=== PATIENT | female | born 1990 | race Caucasian/White ===

== ENCOUNTER 2017-03-12 21:35 | Emergency (ER) | payer MEDICAID ==
[2017-03-12 21:49] VITALS: BP 112/67
--- NOTE | 2017-03-12 22:18 | EDM.PDOC ---
ED HPI GENERAL MEDICAL PROBLEM - General Chief Complaint: Skin Complaint Stated Complaint: BARTHONIAN CYSTS, VUVLA, GROIN Time Seen by Provider: 03/12/17 22:03 Source of Information: Reports: Patient, Family, RN Notes Reviewed History Limitations: Reports: No Limitations - History of Present Illness INITIAL COMMENTS - FREE TEXT/NARRATIVE: 27-year-old female presents emergency department day complaint of painful lump on her genitalia, she states she's had this for about 4 days does have a history of Bartholin's gland cysts she denies any fever no abnormal discharge has not tried anything for the pain Left Vaginal Pain Score (Numeric/FACES): 8 - Related Data Allergies Allergy/AdvReac Type Severity Reaction Status Date / Time lamotrigine [From Lamictal] Allergy Hives Verified 03/12/17 21:54 Home Meds: Home Meds Albuterol Sulfate [Ventolin Hfa] 1 puff INH ASDIRECTED 03/12/17 [History] FLUoxetine [PROzac] 40 mg PO DAILY 03/12/17 [History] Past Medical History Respiratory History: Reports: Asthma TRANSPORT MEDIC History: Reports: Neurological History: Reports: Concussion, Migraines Psychiatric History: Reports: Anxiety, Depression - Past Surgical History HEENT Surgical History: Reports: Tonsillectomy Social & Family History - Tobacco Use Smoking Status *Q: Never Smoker - Recreational Drug Use Recreational Drug Use: No ED ROS GENERAL - Review of Systems Review Of Systems: See Below Constitutional: Denies: Fever, Chills HEENT: Reports: No Symptoms Respiratory: Reports: No Symptoms Cardiovascular: Reports: No Symptoms GI/Abdominal: Reports: No Symptoms : Reports: Pain, Other (See history of present illness) ED EXAM, SKIN/RASH Exam: See Below Text/Narrative:: Examination of genitalia area down the presence of nursing staff I do appreciate a tender indurated area nonfluctuant left labia majora inferior aspect no confluence is noted no appreciable erythema is noted, no pallor is noted Exam Limited By: No Limitations General Appearance: Alert, WD/WN, No Apparent Distress Course - Vital Signs Last Recorded V/S: Last Vital Signs Temp 97.5 F 03/12/17 21:52 Pulse 92 03/12/17 21:52 Resp 16 03/12/17 21:52 BP 112/67 03/12/17 21:52 Pulse Ox 99 03/12/17 21:52 Departure - Departure Time of Disposition: 22:17 Disposition: Home, Self-Care 01 Condition: Good Clinical Impression: Bartholin's duct cyst - Discharge Information Referrals: Ellen Ann NP [Primary Care Provider] - Additional Instructions: Use hydrocodone as needed for pain control, take full course of antibiotics and continue with sitz bath, try the lidocaine as needed for symptomatic relief, Please followup with your primary care provider in 3-5 days if not better, please call return to the emergency department with worsening of symptoms. - Assessment/Plan Plan: Assessment Acuity = acute Site and laterality = concern for development of Bartholin abscess Etiology = probable bacterial cause Manifestations = pain Location of injury = Home Lab values = none Plan Because no central organization was noted for this area of swelling elected to wait for incision and drainage, placed on antibiotics Bactrim DS one tab by mouth twice a day 10 days, total #10 hydrocodone 5/325 every 4 hours when necessary provided for pain control in combination with lidocaine ointment 5% applied to affected areas twice a day she is to follow-up with her primary care in 3-5 days for reevaluation Patient was in agreement with the plan all questions were answered, they were instructed to return to the emergency department or call for worsening symptoms. This note was dictated using [employer] voice recognition software please call with any questions.
== END 2017-03-12 22:29 | disposition home or self-care (01) ==
LOC: JP.ED 21:35
DX: N75.0 Cyst of Bartholin's gland (principal); J45.909 Unspecified asthma, uncomplicated; F32.9 Major depressive disorder, single episode, unspecified; Z98.890 Other specified postprocedural states; Z79.899 Other long term (current) drug therapy; Z88.8 Allergy status to other drugs, medicaments and biological substances
CPT/HCPCS: 99283

== ENCOUNTER 2017-03-30 08:51 | Emergency (ER) | payer MEDICAID ==
[2017-03-30] MEDS ORDERED: HYDROmorphone 1 MG/ML Syringe IM ONE (09:29)
--- NOTE | 2017-03-30 09:36 | EDM.PDOC ---
ED HPI GENERAL MEDICAL PROBLEM - General Chief Complaint: Abdominal Pain Stated Complaint: STOMACH PAIN VERY PAINFUL Time Seen by Provider: 03/30/17 09:15 Source of Information: Reports: Patient History Limitations: Reports: No Limitations - History of Present Illness INITIAL COMMENTS - FREE TEXT/NARRATIVE: 27-year-old female who was following until she woke up this morning, rolled onto her side to sit up and realize she had intense lower abdominal pain, especially on the right side. It did not bother her while she was sleeping. She has no fever or chills, no urinary symptoms. She has not had this type of pain in the past. She is very regular on her cycles and is due to start her period today. No bowel changes. It's very painful to straighten her legs, flexing her hips helps with the pain. She took a test 2 days ago because she's had increased heartburn and it was negative. No radiation of pain to the back. 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) (Took some ibuprofen this morning, doesn't seem to be helping) Right Pelvic Pain Score (Numeric/FACES): 5 - Related Data Allergies Allergy/AdvReac Type Severity Reaction Status Date / Time lamotrigine [From Lamictal] Allergy Hives Verified 03/30/17 09:09 Home Meds: Home Meds Albuterol Sulfate [Ventolin Hfa] 1 puff INH ASDIRECTED 03/12/17 [History] FLUoxetine [PROzac] 40 mg PO DAILY 03/12/17 [History] Lisdexamfetamine [Vyvanse] 30 mg PO DAILY 03/30/17 [History] Past Medical History 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 History: Reports: 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: Neurological History: Reports: Concussion, Migraines Psychiatric History: Reports: Anxiety, Depression - Infectious Disease History Infectious Disease History: Reports: Chicken Pox - Past Surgical History HEENT Surgical History: Reports: Adenoidectomy, Tonsillectomy Social & Family History - Tobacco Use Smoking Status *Q: Never Smoker - Recreational Drug Use Recreational Drug Use: No ED ROS GENERAL - Review of Systems Review Of Systems: See Below Constitutional: Denies: Fever, Chills, Malaise HEENT: Reports: No Symptoms Respiratory: Reports: No Symptoms Cardiovascular: Reports: No Symptoms GI/Abdominal: Reports: Abdominal Pain, Nausea. Denies: Constipation, Diarrhea, Vomiting : Reports: No Symptoms Musculoskeletal: Reports: No Symptoms Skin: Reports: No Symptoms Neurological: Reports: No Symptoms Psychiatric: Reports: No Symptoms ED EXAM, GI/ABD - Physical Exam Exam: See Below Exam Limited By: No Limitations General Appearance: Alert, Anxious, Mild Distress (Patient appears very uncomfortable) Eyes: Bilateral: Normal Appearance Respiratory/Chest: No Respiratory Distress, Lungs Clear Cardiovascular: Regular Rate, Rhythm GI/Abdominal Exam: Soft, Guarding (Marked guarding and rebound in the right lower quadrant) Neurological: Alert, Oriented Psychiatric: Anxious Skin Exam: Warm, Dry Course - Vital Signs Last Recorded V/S: Last Vital Signs Temp 98.5 F 03/30/17 09:07 Pulse 83 03/30/17 11:14 Resp 20 03/30/17 11:14 BP 109/52 L 03/30/17 11:14 Pulse Ox 99 03/30/17 11:14 - Orders/Labs/Meds Labs: Laboratory Tests 03/30/17 03/30/17 Range/Units 09:39 09:39 WBC 20.4 H (4.5-11.0) K/uL RBC 4.21 (3.30-5.50) M/uL Hgb 11.7 L (12.0-15.0) g/dL Hct 36.7 (36.0-48.0) % MCV 87 (80-98) fL MCH 28 (27-31) pg MCHC 32 (32-36) % Plt Count 290 (150-400) K/uL Neut % (Auto) 91 H (36-66) % Lymph % (Auto) 6 L (24-44) % [place] % (Auto) 3 (2-6) % Eos % (Auto) 0 L (2-4) % Baso % (Auto) 0 (0-1) % Sodium 142 (140-148) mmol/L Potassium 4.4 (3.6-5.2) mmol/L Chloride 106 (100-108) mmol/L Carbon Dioxide 28 (21-32) mmol/L Anion Gap 8.5 (5.0-14.0) mmol/L BUN 12 (7-18) mg/dL Creatinine 0.6 (0.6-1.0) mg/dL Est Cr Clr Drug Dosing 118.51 mL/min Estimated GFR (MDRD) > 60 (>60) Glucose 82 (74-106) mg/dL Calcium 8.6 (8.5-10.1) mg/dL Meds: Medications Discontinued Medications Generic Name Dose Route Start Last Admin Trade Name Freq PRN Reason Stop Dose Admin Hydromorphone HCl 1 mg 03/30/17 09:29 03/30/17 09:35 Dilaudid IM 03/30/17 09:30 1 mg ONETIME ONE Administration - Re-Assessments/Exams Free Text/Narrative Re-Assessment/Exam: 03/30/17 09:35 Patient was given 1 mg of Dilaudid IM. CBC and BMP were obtained, I'm going to hold on a UA until a vaginal probe pelvic ultrasound can be obtained as this is likely ovarian pathology in its presentation. I'm going to ask ultrasound to try to visualize the appendix as well. If it is negative we may have to progress with a CT. 03/30/17 11:11 CT scan was negative as well. There was prominence of stool in the right colon which could possibly have been causing some spasm. Patient was discharged, encouraged to drink lots of water and consider a stool softener and return if worsening. Departure - Departure Time of Disposition: 11:47 Disposition: Home, Self-Care 01 Condition: Good Clinical Impression: Abdominal pain Qualifiers: Abdominal location: right lower quadrant Qualified Code(s): R10.31 - Right lower quadrant pain - Discharge Information Instructions: Abdominal Pain, Adult, [id number] Referrals: Ellen Ann NP [Primary Care Provider] - Forms: ED Department Discharge Care Plan Goals: Rest today, drink lots of water and consider a stool softener on a regular basis. Return if worsening or concerns.
--- NOTE | 2017-03-30 11:13 | CT ---
Abdomen Pelvis wo Cont HISTORY: Pain. Dose: Total DLP 560. COMPARISON: Today's ultrasound of the pelvis. FINDINGS: Noncontrast study demonstrates no acute abnormality. The liver, spleen, pancreas, adrenal g lands and abdominal aorta appear normal. Possible 1 mm nonobstructing stone right kidney image 37. The appendix appears normal. The pelvis appears unremarkable. Impression: Negative CT scan abdomen pelvis.
[2017-03-30 11:15] VITALS: BP 109/52
--- NOTE | 2017-03-30 11:31 | US ---
Pelvis Non OB Comp HISTORY: Right-sided pain. COMPARISON: None FINDINGS: Transpelvic exam was performed. The uterus measures 8.7 x 5.0 x 5.7 cm. The endometrial thi ckness is normal measuring 6 to 7 mm. The right and left ovaries appear normal with normal color Doppler flow. Appendix not visualized. Impression: 1. Negative pelvic ultrasound. The appendix is not visualized.
== END 2017-03-30 11:46 | disposition home or self-care (01) ==
LOC: JP.ED 08:51
DX: R10.31 Right lower quadrant pain (principal); J45.909 Unspecified asthma, uncomplicated; Z88.8 Allergy status to other drugs, medicaments and biological substances; Z79.899 Other long term (current) drug therapy
CPT/HCPCS: 36415; 74176; 76856; 80048; 85025; 96372; 99284; J1170

== ENCOUNTER 2017-05-31 07:20 | Emergency (ER) | payer MEDICAID ==
[2017-05-31 07:34] VITALS: BP 110/68
--- NOTE | 2017-05-31 08:03 | EDM.PDOC ---
ED HPI GENERAL MEDICAL PROBLEM - General Chief Complaint: ENT Problem Stated Complaint: SORE THROAT Time Seen by Provider: 05/31/17 07:52 Source of Information: Reports: Patient, RN Notes Reviewed History Limitations: Reports: No Limitations - History of Present Illness INITIAL COMMENTS - FREE TEXT/NARRATIVE: 27-year-old female presents emergency department today complaint of sinus congestion cough and difficulty breathing she states is been ongoing for the last 4-5 days she has difficulty sleeping at night because she can't breathe as her nose is so congested she has not tried any treatments denies any fevers, Throat Pain Score (Numeric/FACES): 4 - Related Data Allergies Allergy/AdvReac Type Severity Reaction Status Date / Time lamotrigine [From Lamictal] Allergy Hives Verified 05/31/17 07:36 Home Meds: Home Meds *Advair 05/31/17 [History] *Albuterol 05/31/17 [History] Past Medical History Respiratory History: Reports: Asthma 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: Neurological History: Reports: Concussion, Migraines Psychiatric History: Reports: Anxiety, Depression - Infectious Disease History Infectious Disease History: Reports: Chicken Pox - Past Surgical History HEENT Surgical History: Reports: Adenoidectomy, Tonsillectomy Social & Family History - Tobacco Use Smoking Status *Q: Unknown Ever Smoked - Recreational Drug Use Recreational Drug Use: No ED ROS ENT - Review of Systems Review Of Systems: See Below Constitutional: Denies: Fever, Chills HEENT: Reports: Sinus Problem, Throat Pain Respiratory: Reports: Shortness of Breath, Cough Cardiovascular: Reports: No Symptoms GI/Abdominal: Reports: No Symptoms : Reports: No Symptoms ED EXAM, ENT - Physical Exam Exam: See Below Exam Limited By: No Limitations General Appearance: Alert, WD/WN, No Apparent Distress Eye Exam: Bilateral Eye: Normal Inspection Ears: Normal External Exam, Normal Canal, Hearing Grossly Normal, Normal TMs Nose: Normal Inspection, Normal Mucousa, No Blood, Other (Tender to palpation over maxillary sinus) Mouth/Throat: Normal Inspection, Normal Gums, Normal Lips, Normal Oropharynx, Normal Teeth Head: Atraumatic, Normocephalic Neck: Normal Inspection, Supple, Non-Tender, Full Range of Motion Respiratory/Chest: No Respiratory Distress, Lungs Clear, Normal Breath Sounds, No Accessory Muscle Use Cardiovascular: Regular Rate, Rhythm, No Murmur Course - Vital Signs Last Recorded V/S: Last Vital Signs Temp 96.6 F 05/31/17 07:33 Pulse 100 05/31/17 07:33 Resp 14 05/31/17 07:33 BP 110/68 05/31/17 07:33 Pulse Ox 100 05/31/17 07:33 Departure - Departure Time of Disposition: 08:02 Disposition: Home, Self-Care 01 Condition: Good Clinical Impression: Sinusitis Qualifiers: Sinusitis location: maxillary Chronicity: acute Recurrence: non-recurrent Qualified Code(s): J01.00 - Acute maxillary sinusitis, unspecified - Discharge Information Referrals: Ellen Ann NP [Primary Care Provider] - Additional Instructions: Take the full course of antibiotics, recommend [id number] use of decongestants, recommend trying the Neti-pot, Please followup with your primary care provider in 3-5 days if not better, please call return to the emergency department with worsening of symptoms. - Assessment/Plan Plan: Assessment Acuity = acute Site and laterality = sinusitis Etiology = unclear etiology Manifestations = pharyngitis Location of injury = Home Lab values = none Plan Talk to her about use of decongestants [id number] as well as the Neti-pot also virus versus bacterial she felt hers is more bacterial therefore will treat with amoxicillin 500 mg by mouth twice a day 10 days follow-up primary care in 7-10 days if no improvement Patient was in agreement with the plan all questions were answered, they were instructed to return to the emergency department or call for worsening symptoms. This note was dictated using [employer] voice recognition software please call with any questions.
== END 2017-05-31 08:09 | disposition home or self-care (01) ==
LOC: JP.ED 07:20
DX: J01.00 Acute maxillary sinusitis, unspecified (principal); J02.9 Acute pharyngitis, unspecified; J45.909 Unspecified asthma, uncomplicated; Z88.8 Allergy status to other drugs, medicaments and biological substances
CPT/HCPCS: 99283